=== PATIENT | female | born 1940 | race Caucasian/White ===

== ENCOUNTER → 2017-03-17 | Day surgery (SDC) | payer MEDICARE, OTHER ==
[~2017-03-17] MED LIST: LIDOCAINE 2% JELLY 5 ML TUBE ONE
== END ==
LOC: END 07:33
PROVIDERS: ATTEND Surgery
PROC: 4A0B7BZ Measurement of Gastrointestinal Pressure, Via Natural or Artificial Opening (ICD-10-PCS; principal; 2017-03-17)
PROC: 4A0B78Z Measurement of Gastrointestinal Motility, Via Natural or Artificial Opening (ICD-10-PCS; 2017-03-17)
DX: K21.9 Gastro-esophageal reflux disease without esophagitis (principal)
CPT/HCPCS: 91010; 91034